=== PATIENT | male | born 1955 | race Two or more races ===

== ENCOUNTER 2017-06-12 01:46 | Observation (INO) | payer BC ==
[2017-06-12] VITALS (14 sets, daily range): BP systolic 99–128; BP diastolic 65–88
[~2017-06-12] VITALS: Ht 177.8 cm; Wt 127.0 kg
[~2017-06-12 01:46] MED LIST: AMOX-362 PO; LISI-355 PO; OXYC5TAB38 PO; TRAM-420 PO; VARD20TA31 PO
[2017-06-12 07:41] LABS: PLATELET COUNT, AUTOMATED 117 K/uL (150-450)
[2017-06-12] MEDS ORDERED: NORMOSOL R SOLN(*) 1000 ML BAG 1,000 ML IV PRN (07:55)
[2017-06-12] MEDS ORDERED: LIDOCAINE/SOD BICARB 8.4% SYR ID ONE (07:55)
[2017-06-12] MEDS ORDERED: FAMOTIDINE 20 MG TAB PO ONE (07:55)
[2017-06-12] MEDS ORDERED: ceFAZolin(*) 2GM/D5W 50ML 50 ML IVPB ONE (07:55)
[2017-06-12] MEDS ORDERED: MIDAZOLAM 2 MG/2 ML VIAL IVP PRN (07:55)
[2017-06-12 07:59] LABS: INR 1.2
--- NOTE | 2017-06-12 08:45 | EKG ---
FACILITY: [facility] PATIENT NAME: LEISA ROA : [id number] MR: [id number] V: [id number] EXAM DATE: ORDERING PHYSICIAN: MARIO GODWIN TECHNOLOGIST: Isra Yu Reason : PREOP Blood Pressure : / mmHG Vent. Rate : 068 BPM Atrial Rate : 068 BPM P-R Int : 178 ms QRS Dur : 098 ms QT Int : 444 ms P-R-T Axes : 004 -02 017 degrees QTc Int : 472 ms Normal sinus rhythm Low voltage QRS Cannot rule out Inferior infarct , age undetermined Abnormal ECG No previous ECGs available Confirmed by SOFIYA TIM ([id number]) on 06/12/2017 4:40:33 PM Referred By: Confirmed By:SOFIYA TIM
[2017-06-12] MEDS ORDERED: BACITRACIN OINT 15 GM TUBE TP ONE (08:54)
[2017-06-12] MEDS ORDERED: fentaNYL CITR 100 MCG/2 ML AMP ONE (11:03)
[2017-06-12] MEDS ORDERED: FAMO20TA28 PO (11:05)
[2017-06-12] MEDS ORDERED: CIPR-214 PO (11:05)
[2017-06-12] MEDS ORDERED: IBUP800T37 PO (11:06)
[2017-06-12] MEDS ORDERED: HYDR-385 PO (11:07)
[2017-06-12] MEDS ORDERED: GENTAMICIN(*) 80 MG/2 ML VIAL 160 MG in NS(*) 0.9% 100 ML BAG 100 ML IVPB ONE (11:20)
[2017-06-12] MEDS ORDERED: KETOROLAC 15 MG/ML VIAL ONE (12:00)
[2017-06-12] MEDS: APAP/HYDROCODONE 325/7.5 TAB PO PRN ×2 (12:42→17:54)
[2017-06-12] MEDS ORDERED: FLUSH 10 ML SYR IVP PRN (13:00)
[2017-06-12] MEDS ORDERED: ONDANSETRON 4 MG/2 ML VIAL IVP PRN (13:00)
[2017-06-12] MEDS ORDERED: ZOLPIDEM TARTRATE 5 MG TAB PO PRN (13:00)
[2017-06-12] MEDS ORDERED: LR(*) 1000 ML BAG 1,000 ML IV PRN (13:00)
[2017-06-12] MEDS ORDERED: NALOXONE HCL 0.4 MG/ML VIAL IVP PRN (13:05)
[2017-06-12] MEDS ORDERED: HYDROmorphone PCA 6 MG/30 ML IV PRN (13:05)
[2017-06-12] MEDS: CEPHALEXIN MONO 500 MG CAP PO SCH ×3 (14:17→21:40)
--- NOTE | 2017-06-12 16:51 | OPERATIVE REPORT 1 ---
EVENT DATE: June 12, 2017 SURGEON: Wilfredo Nina MD ANESTHESIOLOGIST: Wilfredo Elliott MD ANESTHESIA: General anesthetic. PREOPERATIVE DIAGNOSIS Symptomatic left spermatocele with associated enlargement and pain. POSTOPERATIVE DIAGNOSIS Symptomatic left spermatocele with associated enlargement and pain. PROCEDURES PERFORMED 1. Exploration of left testicular region. 2. Left spermatocelectomy. 3. Left epididymectomy. 4. Placement of left nehemiah-scrotal drain. DESCRIPTION OF PROCEDURE Under general anesthetic, the patient was prepped and draped in a supine position. The incision was made in the groin area above the left testicle. The testicle and lesion were delivered out of the operative site and isolated. The tunica vaginalis was opened. The large, multiloculated spermatocele was noted attached to the superior aspect and the lateral aspect of the testicle and the distal cord. The dissection was begun by isolating the vas deferens and dissecting the lesion off the at the inferior pole of the testicle. The convoluted portion of the epididymis and the body of the epididymis were dissected off of the testicle to the rete testis area. The lesion was removed at the rete testis area and removed intact. The blood supply to the testicle was isolated and preserved throughout the procedure. The testicle had normal color and bled easily after conclusion of the dissection. Bleeding was controlled with spot coagulation and ligatures. Estimated blood loss was a few milliliters. The rete testis area was incised, and it was oversewn with running 2-0 chromic catgut suture and then interrupted suture placed along the line of the incision for reinforcement purposes. The bleeding appeared to be satisfactorily controlled. The testicle was "orchiopexied' in the dependent position in the left hemiscrotum. A vacuum drain flat was placed in the left hemiscrotum up into the left groin area. It was secured with 2-0 chromic catgut suture. The wound was irrigated with double antibiotic solution several times throughout the procedure. The testicle was satisfactorily "orchiopexied" in the dependent portion of the left hemiscrotum with interrupted 3-0 catgut sutures times two. The subcutaneous tissue was closed with 3-0 plain catgut. The skin was closed with skin clips. The patient tolerated the procedure satisfactorily and returned to the recovery room in satisfactory condition. This is a 62-year-old [place] male complaining of a left spermatocele that had been progressively enlarging over the last year or two and has enlarged to the point where it started to be pinched and caused him pain and discomfort. Options were discussed with the patient. He was agreeable to further evaluation and therapy. See operative note for details of the exploration and the treatment. The patient will be ready for discharge home when alert and functional. He will force fluids, 2 L per day. Activities are restricted to careful ambulation. He is push down on his left testicle every day to ensure dependent positioning. He was instructed on routine wound care. He is to continue ice packs as needed. He is discharged home on Cipro, Pepcid, Motrin, and [place] therapy. [facility]
[2017-06-12] MEDS: FAMOTIDINE 20 MG TAB PO SCH (21:40)
[2017-06-12] MEDS: DOCUSATE SODIUM 100 MG CAP PO SCH (21:40)
[2017-06-13 00:28] VITALS: BP 110/72
[2017-06-13] MEDS: APAP/HYDROCODONE 325/7.5 TAB PO PRN ×3 (00:41→13:19)
[2017-06-13 03:54] VITALS: BP 112/73
[2017-06-13 07:56] VITALS: BP 121/75
[2017-06-13] MEDS: CEPHALEXIN MONO 500 MG CAP PO SCH ×2 (08:16→13:19)
[2017-06-13] MEDS: DOCUSATE SODIUM 100 MG CAP PO SCH (08:16)
[2017-06-13] MEDS: FAMOTIDINE 20 MG TAB PO SCH (08:16)
[2017-06-13 11:01] VITALS: BP 110/71
== END 2017-06-13 13:38 | disposition home or self-care (01) ==
LOC: OR 01:46 → MED 13:45
DX: N43.40 Spermatocele of epididymis, unspecified (principal); I10 Essential (primary) hypertension
CPT/HCPCS: 36415; 54840; 85025; 85610; 85730; 88304; 93005; G0378; J1580; J1885; J3010; J7050; 82040; 82247; 82310; 82374; 82435; 82565; 82947; 84075; 84132; 84155; 84295; 84450; 84460; 84520; J0690

== ENCOUNTER 2017-06-24 17:37 | Inpatient (IN) | payer BC ==
[~2017-06-24] VITALS: Ht 175.3 cm; Wt 124.7 kg
[2017-06-24] VITALS (8 sets, daily range): BP systolic 95–150; BP diastolic 57–91
[~2017-06-24 17:37] MED LIST changes: +CIPR-214 PO; +FAMO20TA28 PO; +HYDR-385 PO; +IBUP800T37 PO
[2017-06-24] MEDS ORDERED: ROPIVACAINE 0.2% 20 ML VIAL ONE (17:39)
[2017-06-24] MEDS ORDERED: LIDO/EPI 1% MDV 1:100,000 20ML INFIL ONE (17:39)
[2017-06-24] MEDS ORDERED: GENTAMICIN(*) 80 MG/2 ML VIAL 160 MG in NS(*) 0.9% 100 ML BAG 100 ML IVPB ONE (18:00)
[2017-06-24] MEDS ORDERED: LIDOCAINE/SOD BICARB 8.4% SYR SC ONE (18:00)
[2017-06-24] MEDS ORDERED: cefTRIAXone(*) 2 GM VIAL 2 GM in NS(*) 0.9% 100 ML ADDVANT BAG 100 ML IVPB ONE (18:10)
[2017-06-24] MEDS ORDERED: HYDR-4308 PO (18:13)
[2017-06-24] MEDS ORDERED: RANI-324 PO (18:13)
[2017-06-24] MEDS: NORMOSOL R SOLN(*) 1000 ML BAG 1,000 ML IV PRN (18:31)
[2017-06-24 18:34] LABS: PLATELET COUNT, AUTOMATED 119 K/uL (150-450)
[2017-06-24] MEDS ORDERED: PROPOFOL EMUL(*) 10MG/ML 20 ML 20 ML ONE (19:13)
[2017-06-24] MEDS ORDERED: DEXAMETHASONE SOD PHOS 10MG/ML ONE (19:13)
[2017-06-24] MEDS ORDERED: ONDANSETRON 4 MG/2 ML VIAL ONE (19:13)
[2017-06-24] MEDS ORDERED: ROCURONIUM BROM 10 MG/ML 10 ML ONE (19:13)
[2017-06-24] MEDS ORDERED: LIDOCAINE MPF 1% 5 ML VIAL ONE (19:13)
[2017-06-24] MEDS ORDERED: MIDAZOLAM 2 MG/2 ML VIAL ONE (19:14)
[2017-06-24] MEDS ORDERED: fentaNYL CITR 100 MCG/2 ML AMP ONE ×2 (19:14→21:38)
[2017-06-24] MEDS ORDERED: ACETAMINOPHEN(*)1000 MG/100 ML 100 ML IVPB ONE (19:15)
[2017-06-24] MEDS ORDERED: FAMOTIDINE(*) 20MG/50ML PREMIX 50 ML IVPB ONE (19:15)
[2017-06-24] MEDS ORDERED: BACITRACIN OINT 15 GM TUBE TP ONE (20:51)
[2017-06-24] MEDS ORDERED: KETOROLAC 30 MG/ML VIAL ONE (21:21)
[2017-06-24] MEDS ORDERED: KETOROLAC 30 MG/ML VIAL IVP ONE (21:24)
[2017-06-24] MEDS ORDERED: ZOLPIDEM TARTRATE 5 MG TAB PO PRN (22:39)
[2017-06-24] MEDS ORDERED: ACETAMIN/CODEINE #3 300-30 MG PO PRN (22:39)
[2017-06-24] MEDS ORDERED: ONDANSETRON 4 MG/2 ML VIAL IVP PRN (22:45)
[2017-06-24] MEDS ORDERED: NALOXONE HCL 0.4 MG/ML VIAL IVP PRN (22:50)
[2017-06-24] MEDS: HYDROmorphone PCA 6 MG/30 ML IV PRN (23:06)
[2017-06-24] MEDS: LR(*) 1000 ML BAG 1,000 ML IV SCH (23:07)
[2017-06-25] VITALS (11 sets, daily range): BP systolic 90–107; BP diastolic 49–71; Ht 175.3 cm; Wt 124.7 kg
[2017-06-25] MEDS ORDERED: GENTAMICIN(*) 80 MG/2 ML VIAL 80 MG in NS(*) 0.9% 100 ML BAG 100 ML IVPB SCH (04:00)
[2017-06-25] MEDS: LR(*) 1000 ML BAG 1,000 ML IV SCH ×3 (06:42→22:42)
[2017-06-25] MEDS: FAMOTIDINE 20 MG TAB PO SCH ×2 (08:30→20:41)
[2017-06-25] MEDS: DOCUSATE SODIUM 100 MG CAP PO SCH ×2 (08:30→20:41)
[2017-06-25] MEDS: GENTAMICIN/NS 80 MG/100 ML PB 100 ML IVPB SCH ×2 (12:32→20:02)
--- NOTE | 2017-06-25 14:10 | OPERATIVE REPORT 1 ---
EVENT DATE: June 24, 2017 SURGEON: Wilfredo Nina MD ANESTHESIOLOGIST: Janusz Martinez MD ANESTHESIA: General PREOPERATIVE DIAGNOSIS Cellulitis and/or abscess of the left groin and left scrotal area. POSTOPERATIVE DIAGNOSIS Cellulitis and/or abscess of the left groin and left scrotal area. PROCEDURE PERFORMED 1. Incision and drainage of collection of fluid and/or abscess of the left groin and left scrotal area. 2. Placement of J-VAC drain. 3. Barbotage of wound with double antibiotic and then Betadine solution. DESCRIPTION OF PROCEDURE Under general anesthetic, the patient was prepped and draped in the supine position. The wound was opened, and there was immediate drainage of watery, purulent-type material from the wound. Cultures were obtained for anaerobic and aerobic studies. Some fluid was sent in a syringe for gram stain. The wound was probed, and there was fluid and/or abscess drainage that extended from the groin area all the way down to the scrotum across and underneath the penis. The dependent portion of the scrotum was perforated, and the wound was irrigated and barbotaged with double antibiotic solution and Betadine solution and with double antibiotic solution. The J-VAC drain was placed into the left groin area and extended across the wound medially subcutaneously. The drain was secured with 2-0 silk ligatures x 2. The subcutaneous tissue was closed with interrupted 3-0 plain catgut suture. The skin was closed with skin clips. The patient tolerated the procedure satisfactorily and returned to the recovery room in satisfactory condition. INDICATION FOR PROCEDURE This is a 62-year-old male complaining of increased swelling and pain and chills and fever when seen today in the office and per phone call this afternoon following treatment for his left spermatocele approximately 10-11 days ago. Patient has done well. He initially had drains placed, and they were removed, and he was convalescing satisfactorily. However, the patient has noted increased swelling and pain in the left groin scrotal area, and on examination today that was indeed the case. The incision shows some cellulitis. He was informed. Patient stated he had no chills or fever at that time, and explained if he did, to notify us immediately for treatment. called this afternoon, and stated the patient had fever to 102.6 degrees and was having chills. Recommended return for further evaluation and therapy. That has been accomplished, see operative note for details. The patient has not been wearing his scrotal supporter for several days prior to the notice of increased swelling and inflammation. The also noticed drainage this afternoon from the old drain site. PLAN Patient has been started on double antibiotics, and cultures have been obtained. We will continue antibiotic therapy IV for probably one to two days, and then will follow up as an outpatient. RAQUEL
[2017-06-25] MEDS ORDERED: cefTRIAXone 2 GM VIAL IVP SCH (20:00)
[2017-06-25] MEDS: NORMOSOL R SOLN(*) 1000 ML BAG 1,000 ML IV PRN (20:02)
[2017-06-25] MEDS ORDERED: SUGAMMADEX SOD 500 MG/5 ML SDV ONE (21:00)
[2017-06-26 03:08] VITALS: BP 106/71
[2017-06-26] MEDS: GENTAMICIN/NS 80 MG/100 ML PB 100 ML IVPB SCH ×2 (03:33→12:01)
[2017-06-26] MEDS: HYDROmorphone PCA 6 MG/30 ML IV PRN (05:35)
[2017-06-26] MEDS: LR(*) 1000 ML BAG 1,000 ML IV SCH (05:57)
[2017-06-26 08:15] VITALS: BP 107/63
[2017-06-26] MEDS: FAMOTIDINE 20 MG TAB PO SCH (08:21)
[2017-06-26] MEDS: DOCUSATE SODIUM 100 MG CAP PO SCH (08:21)
[2017-06-26 11:23] VITALS: BP 110/72
[2017-06-26] MEDS ORDERED: CEPH500T7 PO (12:46)
[2017-06-26] MEDS ORDERED: IBUP800T37 PO (12:47)
== END 2017-06-26 13:50 | disposition home or self-care (01) | DRG 728 ==
LOC: INTOOBSV 17:37 → MED 17:37 → OBSVTOIN 17:37 → EDSTATUS 18:15
PROC: 0V9500Z Drainage of Scrotum with Drainage Device, Open Approach (ICD-10-PCS; principal; 2017-06-24 20:01)
DX: N49.2 Inflammatory disorders of scrotum (principal); T81.4XXA Infection following a procedure, initial encounter; L03.116 Cellulitis of left lower limb; B95.7 Other staphylococcus as the cause of diseases classified elsewhere; I10 Essential (primary) hypertension; B18.2 Chronic viral hepatitis C; M19.90 Unspecified osteoarthritis, unspecified site; K76.89 Other specified diseases of liver; Z96.653 Presence of artificial knee joint, bilateral; Z87.891 Personal history of nicotine dependence
CPT/HCPCS: 36415; 82310; 82374; 82435; 82565; 82947; 84132; 84295; 84520; 85025; 87040; 87071; 87073; 87077; 87186; 87205; J0131; J0696; J1100; J1170; J1580; J1885; J2001; J2250; J2405; J2704; J2795; J3010; J3490; J7050; J7120

== ENCOUNTER → 2018-06-16 | Outpatient (CLI) | payer MEDICARE ==
[2017-06-25 16:15] VITALS: BMI 40.6
[~2018-06-16] MED LIST changes: +CEPH500T7 PO; +HYDR-654 PO; +RANI-366 PO
--- NOTE | 2018-06-16 14:05 | RADIOLOGY IMAGING REPORT ---
[place] [facility] [place] NAME: Reji Burgos : 1955 MR: [id number] V: [id number] EXAM DATE: ORDERING PHYSICIAN: MARIO ROTHMAN TECHNOLOGIST: Location: [facility] [place] Patient: Reji Burgos : 1955 Visit/Account:[id number] Date of Sevice: 06/16/2018 TIBIA FIBULA RIGHT Given history: Fall. Right leg pain. COMPARISON STUDIES: NONE FINDINGS: Osseous structures: There is a very slight periosteal elevation seen at the medial distal tibial me taphysis. Osseous structures otherwise unremarkable. Joints: Remote right total knee arthroplasty. Tibiotalar joint unremarkable. Soft tissues: normal . IMPRESSION: Slight periosteal elevation distal medial tibial metaphysis which might represent a very subtle cor tical buckle fracture would correlate with point tenderness. Exam otherwise unremarkable. Report Dictated By: Anthony Card MD at 06/16/2018 1:58 PM Report E-Signed By: Anthony Card MD at 06/16/2018 2:01 PM WSN:[email or web address]
== END ==
LOC: RAD 11:21
DX: M79.661 Pain in right lower leg (principal)

== ENCOUNTER 2018-06-19 15:41 | Inpatient (IN) | payer MEDICARE ==
[~2018-06-19] VITALS: Ht 177.8 cm; Wt 132.0 kg
--- NOTE | 2018-06-19 15:52 | ER Report ---
History and Physical Time Seen By MD: 15:52 HPI/ROS CHIEF COMPLAINT: Leg infection HISTORY OF PRESENT ILLNESS: This is a 63-year-old male presents to the emergency department for possible leg infection. Patient states that about 2 weeks ago he tripped over a pallet, fell forward, had his overalls on however he did sustain an injury to the skin surrounding the proximal tibia. He has a previous right knee replacement, after about a week continue to have pain in the right knee in the proximal tibia, was seen by his orthopedic surgeon in [place] they did x-rays and patient states it was "normal", since then he's had increased swelling and erythema surrounding the wound on the anterior surface of his right lower extremity. Stopped in to see Dr. Nina, who placed him on Keflex, the wound has increased in size, now the entire right lower extremity on the anterior surfaces erythematous, cellulitic, hot to touch, very taut and starting to weep. Patient denies fevers or chills. No nausea or vomiting. He does however have pain to the right lower extremity. He also has mildly increased swelling of the left lower extremity however no discomfort. REVIEW OF SYSTEMS: Constitutional: No fever, no chills. Eyes: No discharge. ENT: No sore throat. Cardiovascular: No chest pain, no palpitations. Respiratory: No cough, no shortness of breath. Gastrointestinal: No abdominal pain, no vomiting. Genitourinary: No hematuria. Musculoskeletal: As above. Skin: As above. Neurological: No headache. Allergies: Coded Allergies: No Known Drug Allergies (Unverified , 06/10/17) Home Meds Active Scripts Lisinopril/Hydrochlorothiazide (LISINOPRIL-HCTZ 20-25 MG TAB) 1 Each Tablet, 1 TAB PO QDAY, #30 TAB 6 Refills Prov:SHANNA RAMESH MD 05/23/16 Vardenafil Hcl (LEVITRA) 20 Mg Tablet, 1 TAB PO QDAY PRN for Erectile Dysfunction, #10 TAB 5 Refills Prov:SHANNA RAMESH MD 11/10/15 Reported Medications Ibuprofen (IBUPROFEN) 800 Mg Tablet, 1 TAB PO TID PRN for PAIN, #50 TAB 06/26/17 Cephalexin 500 Mg Tab (KEFLEX 500 MG TAB) 500 Mg Tablet, 500 MG PO QID, #60 TAB 06/26/17 Hydrocodone Bit/Acetaminophen (NORCO 7.5-325 TABLET) 1 Each Tablet, 1 EACH PO Q4-6H PRN for PAIN 06/24/17 Ibuprofen (IBUPROFEN) 800 Mg Tablet, 1 TAB PO TID, #50 TAB 06/12/17 Discontinued Reported Medications Ciprofloxacin 500 Mg Tab (CIPROFLOXACIN 500 MG TAB) 500 Mg Tablet, 500 MG PO BID, #30 TAB 06/12/17 Past Medical/Surgical History The patient has a past medical and surgical history of hypertension, pancreatitis, gallstones, hardening of the liver, hepatitis C, 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 Reviewed Nurses Notes: Yes Hx Smoking: No (3PPD X 10 YRS- quit ) Smoking Status: Former Smoker Hx Alcohol Use: No (last drink a couple weeks ago) Constitutional Vital Sign - Last 24 Hours 06/19/18 06/19/18 06/19/18 06/19/18 15:48 15:49 15:56 16:00 Temp 98.2 Pulse 87 88 Resp 16 B/P (MAP) 143/77 143/77 (99) 131/83 (99) Pulse Ox 93 94 O2 Delivery Room Air 06/19/18 06/19/18 06/19/18 06/19/18 16:11 16:26 16:30 16:41 Pulse ??? 85 82 B/P (MAP) 121/71 (88) Pulse Ox 92 92 06/19/18 06/19/18 06/19/18 06/19/18 16:56 17:00 17:11 17:26 Pulse 78 85 82 B/P (MAP) 130/71 (90) Pulse Ox 93 93 93 06/19/18 06/19/18 06/19/18 06/19/18 17:30 17:35 17:50 18:00 Pulse 83 79 B/P (MAP) 135/81 (99) 140/80 (100) Pulse Ox 88 93 06/19/18 06/19/18 06/19/18 06/19/18 18:05 18:20 18:30 18:35 Pulse 76 81 87 B/P (MAP) 122/76 (91) Pulse Ox 93 91 93 06/19/18 06/19/18 06/19/18 06/19/18 18:50 19:00 19:05 19:20 Pulse 80 75 ??? B/P (MAP) 128/73 (91) Pulse Ox 94 91 06/19/18 06/19/18 06/19/18 06/19/18 19:25 19:30 19:37 19:40 Pulse ??? 80 B/P (MAP) ???/??? (1665) 132/74 (93) Pulse Ox 92 06/19/18 06/19/18 06/19/18 06/19/18 19:55 20:00 20:05 20:20 Pulse 79 93 83 B/P (MAP) 131/68 (89) Pulse Ox 93 93 90 06/19/18 06/19/18 06/19/18 06/19/18 20:30 20:35 20:50 21:00 Pulse 81 80 B/P (MAP) 129/74 (92) 126/69 (88) Pulse Ox 91 92 06/19/18 06/19/18 06/19/18 21:05 21:20 21:30 Pulse 90 88 B/P (MAP) 109/73 (85) Pulse Ox 91 92 Physical Exam General Appearance: The patient is alert, has no immediate need for airway protection and no signs of toxicity. Eyes: Pupils equal and round no pallor or injection. ENT, Mouth: Mucous membranes are moist. Respiratory: There are no retractions, lungs are clear to auscultation. Cardiovascular: Regular rate and rhythm. Gastrointestinal: Abdomen is soft and non tender, no masses, bowel sounds normal. Neurological: Alert and oriented 4. Moving all extremities. Following all commands. No focal neuro deficits. Skin/ Extremities: Hot, weeping, erythematous and cellulitic right lower extremity, very taut. There is also a dime-sized scabbed over wound to the proximal anterior surface of the right lower leg. 1+ pitting edema to the left lower extremity, no indication of infection to the left lower extremity. RLE 46cm, [id number]. Musculoskeletal: Neck is supple non tender. DIFFERENTIAL DIAGNOSIS: After history and physical exam differential diagnosis was considered for cellulitis, osteomyelitis, DVT. Medical Decision Making Data Points Result Diagram: 06/20/18 0539 06/20/18 0539 Laboratory Hematology Test 06/19/18 15:50 06/19/18 16:18 Urine Color Yellow Urine Clarity Clear Urine pH 6.0 pH (4.8-9.5) Urine Specific [place] 1.019 Urine Protein Negative mg/dL (NEGATIVE) Urine Glucose (UA) Negative mg/dL (NEGATIVE) Urine Ketones Negative mg/dL (NEGATIVE) Urine Blood Negative (NEGATIVE) Urine Nitrite Negative (NEGATIVE) Urine Bilirubin Negative (NEGATIVE) Urine Urobilinogen 4.0 mg/dL (0.2-1.9) Urine Leukocyte Esterase Negative (NEGATIVE) Urine RBC 1 /HPF (0-2/HPF) Urine WBC <1 /HPF (0-5/HPF) Urine Squamous Epithelial Cells None /LPF (</=FEW) Urine Bacteria Negative /HPF (NONE-FEW) Urine Mucus None /HPF (NONE-FEW) Lactate 1.4 mmol/L (0.7-2.1) Total Bilirubin 1.5 mg/dl (0.2-1.3) Aspartate Amino Transf (AST/SGOT) 35 U/L (0-35) Alanine Aminotransferase (ALT/SGPT) 27 U/L (0-56) Alkaline Phosphatase 139 U/L (0-126) Total Protein 6.0 g/dl (6.3-8.2) Albumin 2.8 g/dl (3.5-5.0) Chemistry Test 06/19/18 15:50 06/19/18 16:18 Urine Color Yellow Urine Clarity Clear Urine pH 6.0 pH (4.8-9.5) Urine Specific [place] 1.019 Urine Protein Negative mg/dL (NEGATIVE) Urine Glucose (UA) Negative mg/dL (NEGATIVE) Urine Ketones Negative mg/dL (NEGATIVE) Urine Blood Negative (NEGATIVE) Urine Nitrite Negative (NEGATIVE) Urine Bilirubin Negative (NEGATIVE) Urine Urobilinogen 4.0 mg/dL (0.2-1.9) Urine Leukocyte Esterase Negative (NEGATIVE) Urine RBC 1 /HPF (0-2/HPF) Urine WBC <1 /HPF (0-5/HPF) Urine Squamous Epithelial Cells None /LPF (</=FEW) Urine Bacteria Negative /HPF (NONE-FEW) Urine Mucus None /HPF (NONE-FEW) Lactate 1.4 mmol/L (0.7-2.1) Total Bilirubin 1.5 mg/dl (0.2-1.3) Aspartate Amino Transf (AST/SGOT) 35 U/L (0-35) Alanine Aminotransferase (ALT/SGPT) 27 U/L (0-56) Alkaline Phosphatase 139 U/L (0-126) Total Protein 6.0 g/dl (6.3-8.2) Albumin 2.8 g/dl (3.5-5.0) Urinalysis Test 06/19/18 15:50 Urine Color Yellow Urine Clarity Clear Urine pH 6.0 pH (4.8-9.5) Urine Specific [place] 1.019 Urine Protein Negative mg/dL (NEGATIVE) Urine Glucose (UA) Negative mg/dL (NEGATIVE) Urine Ketones Negative mg/dL (NEGATIVE) Urine Blood Negative (NEGATIVE) Urine Nitrite Negative (NEGATIVE) Urine Bilirubin Negative (NEGATIVE) Urine Urobilinogen 4.0 mg/dL (0.2-1.9) Urine Leukocyte Esterase Negative (NEGATIVE) Urine RBC 1 /HPF (0-2/HPF) Urine WBC <1 /HPF (0-5/HPF) Urine Squamous Epithelial Cells None /LPF (</=FEW) Urine Bacteria Negative /HPF (NONE-FEW) Urine Mucus None /HPF (NONE-FEW) Microbiology Microbiology Date/Time Source Procedure Growth Status 06/19/18 17:38 Blood Peripheral Draw Blood Culture - Preliminary NO GROWTH AFTER 1 DAY, REINCUBATED Resulted 06/19/18 16:43 Blood Peripheral Draw Blood Culture - Preliminary NO GROWTH AFTER 1 DAY, REINCUBATED Resulted EKG/Imaging Imaging INDICATION: eval for osteo. No other history provided. DATE: 06/19/2018 9:06 PM. TECHNIQUE: CT KNEE W/O RT, TIBIA RIGHT W/O CONTRAST. Noncontrast axial CT imaging was performed of the right tibia and fibula and right knee. One of the following dose optimization techniques was utilized in the performance of this exam: Automated exposure control; adjustment of the mA and/or kV according to the patient's size; or use of an iterative reconstruction technique. Specific details can be referenced in the facility's radiology CT exam operational policy. COMPARISON: Radiographs of the same day. FINDINGS: Knee: Streak artifact from the total knee prosthesis obscures much of the knee. No evidence of periprosthetic fracture. There is a trace effusion. There is no tibial or fibular fracture. No periosteal erosion or reaction. Focal subcutaneous edema is most notable anteriorly adjacent to the proximal tibial shaft. There is no discrete fluid collection or abscess. Mild skin thickening. There is moderate circumferential edema at the ankle. IMPRESSION: 1. No acute osseous adenopathy. 2. Limited evaluation of the knee given hardware artifact. Trace effusion. 3. Focal edema anterior to the proximal tibial shaft but no discrete fluid collection or abscess. No underlying periosteal reaction or erosion. 4. At least moderate circumferential edema at the ankle. Report Dictated By: Sherice Shepard MD at 06/19/2018 9:06 PM Report E-Signed By: Sherice Shepard MD at 06/19/2018 9:14 PM WSN:[id number] Right lower extremity: Common femoral vein: Negative. Femoral vein: Negative. Deep femoral vein: Negative. Popliteal vein: Negative. Visualized deep calf veins: Negative. Greater saphenous vein in the proximal thigh: Negative. Popliteal fossa: Negative. Waveforms: Normal respiratory phasicity. Other findings: Prominent right inguinal lymph node with fatty hilum measuring 1.3 cm in short axis. Edema in the subcutaneous soft tissues in the right lower leg. IMPRESSION: No evidence of deep vein thrombosis of the right lower extremity. Edema in the subcutaneous soft tissues in the right lower leg. Mildly prominent right inguinal lymph node measuring 1.3 cm in short axis. This may be reactive. Report Dictated By: Giuseppe Botello MD at 06/19/2018 5:36 PM Report E-Signed By: Giuseppe Botello MD at 06/19/2018 5:39 PM WSN:[id number] Bones: Unchanged small focus of slight periosteal elevation at the distal medial tibial metaphysis. Small plantar calcaneal enthesophytes. Joint spaces: Right knee arthroplasty. Hardware: Right knee arthroplasty hardware appears intact. Alignment: Normal. Soft tissues: Circumferential soft tissue swelling in the lower leg and ankle. There is also soft tissue swelling along the dorsal foot. IMPRESSION: Diffuse soft tissue swelling in the right lower leg and along the dorsum of the right foot. Unchanged small focus of slight periosteal elevation along the medial distal tibial metaphysis. This could be posttraumatic, however, early changes of osteomyelitis are not excluded. Report Dictated By: Giuseppe Botello MD at 06/19/2018 5:39 PM Report E-Signed By: Giuseppe Botello MD at 06/19/2018 5:49 PM WSN:[id number] ED Course/Re-evaluation Clinical Indication for ER IV: Hydration, IV Access ED Course The patient was admitted to room. A history and physical were obtained. Differential diagnoses were considered. An IV was started. A CBC, CMP, lactate and blood cultures were obtained. A 1 L normal saline bolus was given. CBC showing white count of 3.4, MCV 99.7, monocytes 19.5, alk phosphatase 139, normal lactate. Patient was given 2.5 g loading dose of vancomycin. Patient was also given Zosyn while in the ER. An ultrasound of the right lower extremity was negative for DVT, showing reactive lymph node, x-ray of the right lower extremity Diffuse soft tissue swelling in the right lower leg and along the dorsum of the right foot. Unchanged small focus of slight periosteal elevation along the medial distal tibial metaphysis. This could be posttraumatic, however, early changes of osteomyelitis are not excluded. I reviewed the results with the patient, as there was a question of osteomyelitis I did recommend a CT, they were agreeable he CT of the knee and right lower extremity were obtained. Negative right lower extremity and a CT, no indication of osteomyelitis. I didn't review the results with the patient, I also spoke with Dr. Ramos as noted below, the patient will be admitted to the medical floor. 06/19/2018 9:28:01 pm I did speak with Dr. Ramos, the hospitalist on-call, he's except the patient and the hospitalist services for cellulitis of the right lower extremity. Patient is agreeable with the admission. Decision to Disposition Date: Jun 19, 2018 Decision to Disposition Time: 21:27 Depart Departure Latest Vital Signs Vital Signs Date Time Temp Pulse Resp B/P (MAP) Pulse Ox O2 Delivery O2 Flow Rate FiO2 06/19/18 21:30 109/73 (85) 06/19/18 21:20 88 92 06/19/18 15:48 98.2 16 Room Air Impression: Primary Impression: Cellulitis of right lower extremity Condition: Improved Disposition: Admitted from ER Referrals: SHANNA RAMESH MD (PCP) BLANCA VARELA RECEIVING BARN CUSTODIAN- Jun 19, 2018 15:52
[2018-06-19] MEDS ORDERED: NS(*) 0.9% 1000 ML BAG 1,000 ML IV ONE (16:05)
[2018-06-19 16:32] LABS: PLATELET COUNT, AUTOMATED 163 K/uL (150-450)
[2018-06-19] MEDS ORDERED: VANCOMYCIN(*) 1 GM VIAL 2.5 GM in NS(*) 0.9% 250 ML BAG 250 ML IVPB ONE (16:55)
[2018-06-19] MEDS ORDERED: VANCOMYCIN(*) 1 GM VIAL 2.5 GM in NS(*) 0.9% 500 ML BAG 500 ML IVPB ONE ×2 (17:00→17:05)
--- NOTE | 2018-06-19 17:43 | RADIOLOGY IMAGING REPORT ---
FACILITY: [facility] PATIENT NAME: Reji Burgos : 1955 MR: [id number] V: [id number] EXAM DATE: ORDERING PHYSICIAN: BLANCA VARELA TECHNOLOGIST: Location: [facility] [place] Patient: Reji Burgos : 1955 Visit/Account:[id number] Date of Sevice: 06/19/2018 EXAMINATION: Unilateral lower extremity deep vein duplex Doppler ultrasound HISTORY: Redness and swelling post fall. COMPARISON: None. FINDINGS: Grayscale compression, duplex and color Doppler interrogation of the right lower extremity deep veins from common femoral vein to proximal calf was performed. The greater saphenous vein in the ipsilater al proximal thigh was evaluated using similar technique. Right lower extremity: Common femoral vein: Negative. Femoral vein: Negative. Deep femoral vein: Negative. Popliteal vein: Negative. Visualized deep calf veins: Negative. Greater saphenous vein in the proximal thigh: Negative. Popliteal fossa: Negative. Waveforms: Normal respiratory phasicity. Other findings: Prominent right inguinal lymph node with fatty hilum measuring 1.3 cm in short axis. Edema in the subcutaneous soft tissues in the right lower leg. IMPRESSION: No evidence of deep vein thrombosis of the right lower extremity. Edema in the subcutaneous soft tissues in the right lower leg. Mildly prominent right inguinal lymph node measuring 1.3 cm in short axis. This may be reactive. Report Dictated By: Giuseppe Botello MD at 06/19/2018 5:36 PM Report E-Signed By: Giuseppe Botello MD at 06/19/2018 5:39 PM WSN:[id number]
--- NOTE | 2018-06-19 17:54 | RADIOLOGY IMAGING REPORT ---
FACILITY: PATIENT NAME: Reji Burgos : 1955 MR: [id number] V: [id number] EXAM DATE: ORDERING PHYSICIAN: BLANCA VARELA TECHNOLOGIST: Location: [facility] Patient: Reji Burgos : 1955 Visit/Account:[id number] Date of Sevice: 06/19/2018 EXAMINATION: Right tibia and fibula radiographs 2 views HISTORY: Redness and swelling of right lower leg. COMPARISON: 06/16/2018. FINDINGS: AP and lateral views of the right tibia and fibula are obtained. Bones: Unchanged small focus of slight periosteal elevation at the distal medial tibial metaphysis. Small plantar calcaneal enthesophytes. Joint spaces: Right knee arthroplasty. Hardware: Right knee arthroplasty hardware appears intact. Alignment: Normal. Soft tissues: Circumferential soft tissue swelling in the lower leg and ankle. There is also soft ti ssue swelling along the dorsal foot. IMPRESSION: Diffuse soft tissue swelling in the right lower leg and along the dorsum of the right foot. Unchanged small focus of slight periosteal elevation along the medial distal tibial metaphysis. This could be posttraumatic, however, early changes of osteomyelitis are not excluded. Report Dictated By: Giuseppe Botello MD at 06/19/2018 5:39 PM Report E-Signed By: Giuseppe Botello MD at 06/19/2018 5:49 PM WSN:[id number]
[2018-06-19] MEDS: PIPERACILLIN/TAZO*3.375GM VIAL 3.375 GM in NS(*) 0.9% 100 ML MINI-BAG 100 ML IVPB ONE ×2 (18:55→22:00)
--- NOTE | 2018-06-19 21:17 | RADIOLOGY IMAGING REPORT ---
FACILITY: [facility] - [place] PATIENT NAME: Reji Burgos : 1955 MR: [id number] V: [id number] EXAM DATE: ORDERING PHYSICIAN: BLANCA VARELA TECHNOLOGIST: [place] [facility] [place] Patient: Reji Burgos : 1955 Visit/Account:[id number] Date of Sevice: 06/19/2018 INDICATION: eval for osteo. No other history provided. DATE: 06/19/2018 9:06 PM. TECHNIQUE: CT KNEE W/O RT, TIBIA RIGHT W/O CONTRAST. Noncontrast axial CT imaging was performed of t he right tibia and fibula and right knee. One of the following dose optimization techniques was util ized in the performance of this exam: Automated exposure control; adjustment of the mA and/or kV acco rding to the patient's size; or use of an iterative reconstruction technique. Specific details can be referenced in the facility's radiology CT exam operational policy. COMPARISON: Radiographs of the same day. FINDINGS: Knee: Streak artifact from the total knee prosthesis obscures much of the knee. No evidence of perip rosthetic fracture. There is a trace effusion. There is no tibial or fibular fracture. No periosteal erosion or reaction. Focal subcutaneous edema is most notable anteriorly adjacent to the proximal tibial shaft. There is no discrete fluid collec tion or abscess. Mild skin thickening. There is moderate circumferential edema at the ankle. IMPRESSION: 1. No acute osseous adenopathy. 2. Limited evaluation of the knee given hardware artifact. Trace effusion. 3. Focal edema anterior to the proximal tibial shaft but no discrete fluid collection or abscess. N o underlying periosteal reaction or erosion. 4. At least moderate circumferential edema at the ankle. Report Dictated By: Sherice Shepard MD at 06/19/2018 9:06 PM Report E-Signed By: Sherice Shepard MD at 06/19/2018 9:14 PM WSN:[email or web address]
--- NOTE | 2018-06-19 21:18 | RADIOLOGY IMAGING REPORT ---
FACILITY: [facility] PATIENT NAME: Reji Burgos : 1955 MR: [id number] V: [id number] EXAM DATE: ORDERING PHYSICIAN: BLANCA VARELA TECHNOLOGIST: Location: [facility] - [place] Patient: Reji Burgos : 1955 Visit/Account:[id number] Date of Sevice: 06/19/2018 INDICATION: eval for osteo. No other history provided. DATE: 06/19/2018 9:06 PM. TECHNIQUE: CT KNEE W/O RT, TIBIA RIGHT W/O CONTRAST. Noncontrast axial CT imaging was performed of t he right tibia and fibula and right knee. One of the following dose optimization techniques was util ized in the performance of this exam: Automated exposure control; adjustment of the mA and/or kV acco rding to the patient's size; or use of an iterative reconstruction technique. Specific details can be referenced in the facility's radiology CT exam operational policy. COMPARISON: Radiographs of the same day. FINDINGS: Knee: Streak artifact from the total knee prosthesis obscures much of the knee. No evidence of perip rosthetic fracture. There is a trace effusion. There is no tibial or fibular fracture. No periosteal erosion or reaction. Focal subcutaneous edema is most notable anteriorly adjacent to the proximal tibial shaft. There is no discrete fluid collec tion or abscess. Mild skin thickening. There is moderate circumferential edema at the ankle. IMPRESSION: 1. No acute osseous adenopathy. 2. Limited evaluation of the knee given hardware artifact. Trace effusion. 3. Focal edema anterior to the proximal tibial shaft but no discrete fluid collection or abscess. N o underlying periosteal reaction or erosion. 4. At least moderate circumferential edema at the ankle. Report Dictated By: Sherice Shepard MD at 06/19/2018 9:06 PM Report E-Signed By: Sherice Shepard MD at 06/19/2018 9:14 PM WSN:[email or web address]
[2018-06-19] MEDS ORDERED: PIPERACILLIN/TAZO*3.375GM VIAL 3.375 GM ONE (21:41)
[2018-06-19] MEDS ORDERED: NS(*) 0.9% 100 ML BAG 100 ML ONE (21:42)
[2018-06-19] MEDS ORDERED: NS(*) 0.9% 500 ML BAG 500 ML IV ONE (22:00)
[2018-06-19] MEDS ORDERED: INFLUENZA VIRUS VAC 0.5ML SYR IM ONLY ONE (22:50)
[2018-06-19] MEDS ORDERED: ACETAMINOPHEN 500 MG TAB PO PRN (22:50)
[2018-06-19 23:01] VITALS: BP 138/75
--- NOTE | 2018-06-19 23:15 | History & Physical ---
History of Present Illness Chief Complaint Swelling and redness right leg. History of Present Illness This patient presented to the emergency room complaining of redness and swelling in the right leg. It started 2 weeks ago after suffering a fall and obtaining an abrasion on the leg. It turned red and swollen. He was seen by his orthopedic surgeon since he does have a knee replacement. He was cleared by orthopedics and placed on Keflex. The redness has advanced despite antibiotics. History Problems: (1) Benign hypertension Status: Chronic (2) Hepatitis C Status: Chronic Home Meds Active Scripts Lisinopril/Hydrochlorothiazide (LISINOPRIL-HCTZ 20-25 MG TAB) 1 Each Tablet, 1 TAB PO QDAY, #30 TAB 6 Refills Prov:SHANNA RAMESH MD 05/23/16 Vardenafil Hcl (LEVITRA) 20 Mg Tablet, 1 TAB PO QDAY PRN for Erectile Dysfunction, #10 TAB 5 Refills Prov:SHANNA RAMESH MD 11/10/15 Reported Medications Ibuprofen (IBUPROFEN) 800 Mg Tablet, 1 TAB PO TID PRN for PAIN, #50 TAB 06/26/17 Cephalexin 500 Mg Tab (KEFLEX 500 MG TAB) 500 Mg Tablet, 500 MG PO QID, #60 TAB 06/26/17 Hydrocodone Bit/Acetaminophen (NORCO 7.5-325 TABLET) 1 Each Tablet, 1 EACH PO Q4-6H PRN for PAIN 06/24/17 Ibuprofen (IBUPROFEN) 800 Mg Tablet, 1 TAB PO TID, #50 TAB 06/12/17 Discontinued Reported Medications Ciprofloxacin 500 Mg Tab (CIPROFLOXACIN 500 MG TAB) 500 Mg Tablet, 500 MG PO BID, #30 TAB 06/12/17 Allergies: Coded Allergies: No Known Drug Allergies (Unverified , 06/10/17) Patient History: FH: chronic renal failure BROTHER OR SISTER, FH: congestive heart failure MOTHER, , Age:74 FH: hypertension FATHER, , Age:56 FH: stroke FATHER, , Age:56 FHx: heart failure BROTHER OR SISTER, Hx Smoking: No (3PPD X 10 YRS- quit ) Smoking Status: Former Smoker Caffeine Intake: Soda Caffeine/Cups Per Day: OCCASSIONAL Hx Alcohol Use: No (last drink a couple weeks ago) Hx Substance Use Disorder: No Social Drug Use: Never Review of Systems All Systems Reviewed/Normal: Yes Exam Vital Signs Vital Signs Date Time Temp Pulse Resp B/P (MAP) Pulse Ox O2 Delivery O2 Flow Rate FiO2 06/19/18 23:01 98.0 76 16 138/75 (96) 96 Room Air Neuro: No Gross deficits Eyes: PERRLA Cardiovascular: Regular Rate and Rhythm Respiratory: Clear to Auscultation GI: Abd Soft and Non-Tender Extremities: Other (Right leg is red and edematous. An inkline was placed at the borders.) Medical Decision Making Data Points Result Diagram: 06/19/18 1618 06/19/18 1618 Assessment and Plan Problems: (1) Cellulitis of right lower extremity Status: Acute Assessment & Plan: He did have a worsening cellulitis despite outpatient treatment with Keflex. Plain films and CT scan were negative for osseous or joint involvement. He has been placed on Zosyn and vancomycin. (2) Benign hypertension Status: Chronic Assessment & Plan: He is on chronic treatment with lisinopril and hydrochlorothiazide. (3) Hepatitis C Status: Chronic Venous Thromboembolism Antithrombotics Is Pt On Any Antithrombotics?: No Exam Sepsis Risk: No Definite Risk SOFIYA TIM DO Jun 19, 2018 23:15
[2018-06-19] MEDS ORDERED: FLUSH 10 ML SYR IVP PRN (23:35)
[2018-06-20] MEDS ORDERED: PIPERACILLIN/TAZO*3.375GM VIAL 3.375 GM ONE (03:59)
[2018-06-20] MEDS ORDERED: NS(*) 0.9% 100 ML BAG 100 ML ONE (03:59)
[2018-06-20] MEDS: PIPERACILLIN/TAZO*3.375GM VIAL 3.375 GM in NS(*) 0.9% 100 ML MINI-BAG 100 ML IVPB SCH ×4 (04:00→21:29)
[2018-06-20] MEDS ORDERED: VANCOMYCIN 1 GM VIAL ONE (04:01)
[2018-06-20] MEDS ORDERED: VANCOMYCIN 0.5 GM VIAL ONE ×2 (04:01→04:20)
[2018-06-20] MEDS ORDERED: NS(*) 0.9% 1000 ML BAG 1,000 ML ONE (04:12)
[2018-06-20] MEDS ORDERED: VANCOMYCIN(*) 1 GM VIAL 1 GM, VANCOMYCIN HCL 0.750 GM VIAL 0.75 GM in NS(*) 0.9% 500 ML... IVPB SCH (05:00)
[2018-06-20 06:24] LABS: PLATELET COUNT, AUTOMATED 143 K/uL (150-450)
[2018-06-20 07:31] VITALS: BP 127/89
[2018-06-20 10:25] VITALS: Ht 177.8 cm; Wt 132.0 kg
[2018-06-20] MEDS: LISINOPRIL 20 MG TAB PO SCH (10:55)
[2018-06-20] MEDS: RANITIDINE HCL 150 MG TAB PO SCH ×2 (10:55→20:21)
[2018-06-20] MEDS: ENOXAPARIN 40 MG/0.4ML SYR SC SCH (10:56)
[2018-06-20] MEDS: HYDROCHLOROTHIAZIDE 25 MG TAB PO SCH (10:56)
--- NOTE | 2018-06-20 13:00 | NUR ---
Lab report printed for Dr. Nina at his request.
--- NOTE | 2018-06-20 13:05 | Hospitalist Progress Note ---
Subjective Progress Notes Subjective 63M M admitted for cellulitis. ANGELO overnight, redness receding. Patient Complains of: Gastrointestinal: No Nausea, No Vomiting Physical Exam Vital Signs Date Time Temp Pulse Resp B/P (MAP) Pulse Ox O2 Delivery O2 Flow Rate FiO2 06/20/18 07:31 98.8 68 16 127/89 (102) 91 Room Air Intake and Output 06/20/18 06:59 Intake Total 1650 ml Output Total 350 ml Balance 1300 ml IV Total 1650 ml Output Urine Total 350 ml General Appearance: Alert, Awake, No Acute Distress, Afebrile Neuro: No Gross deficits ENT: Normal Cardiovascular: Normal Rhythm & Peripheral Pulses Respiratory: No Respiratory Distress Integumentary: Other (R leg erythema) Result Diagram: 06/20/1853806/20/18538 Assessment and Plan Problems: (1) Cellulitis of right lower extremity Status: Acute Assessment & Plan: He did have a worsening cellulitis despite outpatient treatment with Keflex. Plain films and CT scan were negative for osseous or joint involvement. He has been placed on Zosyn and vancomycin. If clinically improved will attempt to narrow antibiotic coverage. (2) Benign hypertension Status: Chronic Assessment & Plan: He is on chronic treatment with lisinopril and hydrochlorothiazide. (3) Hepatitis C Status: Chronic Exam Sepsis Risk: No Definite Risk RAMY ELLISON DO Jun 20, 2018 13:05
[2018-06-20 15:22] VITALS: BP 124/87
--- NOTE | 2018-06-20 17:11 | Pharmacy Note ---
Vancomycin Management Note Vanco Dosing Note Pharmacy Services Pharmacokinetic Dosing Consult, Vancomycin Pharmacy has been consulted for dosing and monitoring of vancomycin for cellulitis of RLE in a 63 yo male. Pertinent Past Medical History: bilateral TKAs, spermatocele surgery w/resulting MRSA infection, Hep C Antibiotics prior to admission; Keflex Additional Antimicrobials: Zosyn 3.375 gm IV q6h Patient Information: Height (cm): 177.8 Actual Body Weight (ABW): 132 kg (99.6 AdjBW) Pertinent Lab Tests WHITE BLOOD COUNT 3.1 NEUTROPHILS 46.3 SCR 0.9 VANCOMYCIN RANDOM 15.90 Culture Results: BLOOD NGTD Assessment: CrCl 84.5 ml/min IBW, 115 ml/min adjBW Renal function is stable Vancomycin Monitoring Assessment Goal Vancomycin Trough Level: 15-20 Plan: 1) Vancomycin 25 mg/kg loading dose (based on ABW): 2500 mg IV x 1 was given in ED 06/19/18 2) Vancomycin maintenance dose (based on ABW): 1750 mg IV q12h 3) Vancomycin monitoring: Tr today was 15.90 after 2 doses so will keep the same and do another Tr 1 hr before next dose at 06/21/18 0500. Pharmacy will continue to monitor daily and adjust regimen as appropriate. Thank you for the consult. NEMO OCASIO Jun 20, 2018 17:11
[2018-06-20] MEDS: VANCOMYCIN(*) 1 GM VIAL 1 GM, VANCOMYCIN HCL 0.750 GM VIAL 0.75 GM in NS(*) 0.9% 250 ML... IVPB SCH (17:49)
[2018-06-20] MEDS ORDERED: HYDR-627 PO (17:59)
[2018-06-20 19:26] VITALS: BP 109/57
[2018-06-21 04:06] VITALS: BP 114/79
[2018-06-21] MEDS: PIPERACILLIN/TAZO*3.375GM VIAL 3.375 GM in NS(*) 0.9% 100 ML MINI-BAG 100 ML IVPB SCH (04:07)
[2018-06-21] MEDS: VANCOMYCIN(*) 1 GM VIAL 1 GM, VANCOMYCIN HCL 0.750 GM VIAL 0.75 GM in NS(*) 0.9% 250 ML... IVPB SCH (04:51)
[2018-06-21 06:54] VITALS: BP 117/71
[2018-06-21] MEDS: HYDROCHLOROTHIAZIDE 25 MG TAB PO SCH (09:05)
[2018-06-21] MEDS: RANITIDINE HCL 150 MG TAB PO SCH ×2 (09:05→21:09)
[2018-06-21] MEDS: LISINOPRIL 20 MG TAB PO SCH (09:05)
[2018-06-21] MEDS: ENOXAPARIN 40 MG/0.4ML SYR SC SCH (09:06)
--- NOTE | 2018-06-21 11:23 | Hospitalist Progress Note ---
Subjective Progress Notes Subjective Overall, feeling much better. He reports that the erythema is improving. Physical Exam Vital Signs Date Time Temp Pulse Resp B/P (MAP) Pulse Ox O2 Delivery O2 Flow Rate FiO2 06/21/18 07:23 Room Air 06/21/18 06:54 98.6 80 14 117/71 (86) 96 Intake and Output 06/21/18 07:00 Intake Total 2478 ml Output Total 1540 ml Balance 938 ml Intake Oral 1660 ml IV Total 818 ml Output Urine Total 1540 ml # Voids 1 # Bowel Movements 1 General Appearance: Alert, Awake, No Acute Distress Integumentary: Other (Mild erythema in right leg but no longer to the edges of the drawn in margins. Swelling/scab over the tibial plateau. Cannot express discharge) Result Diagram: 06/20/1853806/20/18538 Assessment and Plan Problems: (1) Cellulitis of right lower extremity Status: Acute Assessment & Plan: He did have a worsening cellulitis despite outpatient treatment with Keflex. Plain films and CT scan were negative for osseous, joint involvement, or abscess. He was placed on Zosyn and vancomycin. Afebrile. Cellulitis improving. Will switch to IV Clindamycin because he had a MRSA infection of the groin/scrotal area after a spermatocelectomy/epididymectomy a year ago (sensitive to Clindamycin). (2) Benign hypertension Status: Chronic Assessment & Plan: He is on chronic treatment with lisinopril and hydrochloro thiazide. (3) Hepatitis C Status: Chronic Exam Sepsis Risk: No Definite Risk MARY AREVALO MD Jun 21, 2018 11:23
[2018-06-21 15:31] VITALS: BP 123/78
[2018-06-21] MEDS: CLINDAMYCIN(*) 900 MG/NS 50 ML 50 ML IVPB SCH (17:23)
--- NOTE | 2018-06-21 19:26 | Antimicrobial Stewardship ---
Antimicrobial Stewardship Empiricly appropriate: Yes Comment Was empirically started on Vancomycin and Zosyn for MRSA infection. Approriate Cultures done: Yes (Blood culture-NGTD) Review the antibiotic sensitiv: Yes (Per Dr. Isak Fernandez the patient has MRSA infection sensitive to Clindamycin so antibiotics were switched to Clindamycin 900 mg Iv q8h on 06/21/18.) Serum concentration checked: Yes Comment Vancomycin Troughs were done on 06/20/18 and 06/21/18 and were 15.9 and 17.98 respectively. Reviewed for Drug Interaction: Yes Monitored for Toxicities: Yes Determine standard duration: 8 weeks NEMO OCASIO Jun 21, 2018 19:26
[2018-06-22] MEDS: CLINDAMYCIN(*) 900 MG/NS 50 ML 50 ML IVPB SCH (00:45)
[2018-06-22 00:46] VITALS: BP 113/70
[2018-06-22] MEDS ORDERED: ACETAMINOPHEN 500 MG TAB PO PRN (01:10)
[2018-06-22 06:17] LABS: PLATELET COUNT, AUTOMATED 138 K/uL (150-450)
[2018-06-22 07:22] VITALS: BP 114/73
[2018-06-22] MEDS: RANITIDINE HCL 150 MG TAB PO SCH (09:48)
[2018-06-22] MEDS: ENOXAPARIN 40 MG/0.4ML SYR SC SCH (09:49)
[2018-06-22] MEDS ORDERED: CLINDAMYCIN 150 MG CAP PO SCH (09:50)
[2018-06-22] MEDS: HYDROCHLOROTHIAZIDE 25 MG TAB PO SCH (09:52)
[2018-06-22] MEDS: LISINOPRIL 20 MG TAB PO SCH (09:52)
[2018-06-22] MEDS ORDERED: CLIN-60 PO (09:55)
--- NOTE | 2018-06-22 10:00 | Hospitalist Depart ---
Discharge Summary Reason for Hosp/Final Diag: (1) Cellulitis of right lower extremity Status: Acute Hospital Course & Plan: He did have a worsening cellulitis despite outpatient treatment with Keflex. Plain films and CT scan were negative for osseous, joint involvement, or abscess. He was placed on Zosyn and vancomycin. Afebrile. Cellulitis improving. He was switched to IV Clindamycin because he had a MRSA infection of the groin/scrotal area after a spermatocelectomy/epididymectomy a year ago (sensitive to Clindamycin). He will be transitioned to oral clindamycin today. He will follow up with PCP in one week. (2) Benign hypertension Status: Chronic Hospital Course & Plan: He is on chronic treatment with lisinopril and hydrochlorothiazide. (3) Hepatitis C Status: Chronic Departure Latest Vital Signs Vital Signs 06/22/18 07:22 Temp 98.6 Pulse 66 Resp 18 B/P (MAP) 114/73 (87) Pulse Ox 92 O2 Delivery Room Air Weight (Pounds): 291 Result Diagram: 06/22/1851706/22/18517 Condition: Improved Discharge: Home, Self Care Discharge Instructions Home Meds Active Scripts Clindamycin Hcl (CLEOCIN HCL) 150 Mg Capsule, 450 MG PO QID for 7 Days, #28 CAPSULE Prov:LAKESHIA ARREOLA FLAT LOCK MACHINE OPERATOR 06/22/18 Lisinopril/Hydrochlorothiazide (LISINOPRIL-HCTZ 20-25 MG TAB) 1 Each Tablet, 1 TAB PO QDAY, #30 TAB 6 Refills Prov:SHANNA RAMESH MD 05/23/16 Vardenafil Hcl (LEVITRA) 20 Mg Tablet, 1 TAB PO QDAY PRN for Erectile Dysfunction, #10 TAB 5 Refills Prov:SHANNA RAMESH MD 11/10/15 Reported Medications Hydrocodone Bit/Acetaminophen (NORCO 10-325 TABLET) 1 Each Tablet, 1 EACH PO Q6H PRN for PAIN TAKE 1 TAB BY MOUTH EVERY 6 HRS NEEDED FOR MODERATE PAIN FOR UP TO 7 DAYS. DO NOT EXCEED A MAXIMUM OF 4 TABLETS A DAY 06/20/18 Ibuprofen (IBUPROFEN) 800 Mg Tablet, 1 TAB PO TID PRN for PAIN, #50 TAB 06/26/17 Discontinued Reported Medications Cephalexin 500 Mg Tab (KEFLEX 500 MG TAB) 500 Mg Tablet, 500 MG PO QID, #60 TAB 06/26/17 Ciprofloxacin 500 Mg Tab (CIPROFLOXACIN 500 MG TAB) 500 Mg Tablet, 500 MG PO BID, #30 TAB 06/12/17 Diet: Regular Activity: As Tolerated Special Instructions: Take Clindamycin as directed until gone. Follow up with Primary Care Provider in one week. Copies to: SHANNA RAMESH MD ; Venous Thromboembolism Antithrombotics Is Pt On Any Antithrombotics?: No LAKESHIA ARREOLA Jun 22, 2018 10:00
== END 2018-06-22 10:35 | disposition home or self-care (01) | DRG 603 ==
LOC: ER 15:48 → MED 21:30
PROVIDERS: ADMIT Family Medicine; ATTEND Family Medicine
DX: L03.115 Cellulitis of right lower limb (principal); I10 Essential (primary) hypertension; Z96.653 Presence of artificial knee joint, bilateral; Z87.891 Personal history of nicotine dependence; Z86.14 Personal history of Methicillin resistant Staphylococcus aureus infection; K73.9 Chronic hepatitis, unspecified
CPT/HCPCS: 36415; 80202; 81001; 82040; 82247; 82310; 82374; 82435; 82565; 82947; 83605; 84075; 84132; 84155; 84295; 84450; 84460; 84520; 85025; 87040; 96361; 96365; 96366; 99285; J1650; J2543; J3370; J3490; J7030; J7040; J7050

== ENCOUNTER → 2018-07-16 | Outpatient (CLI) | payer MEDICARE ==
[2018-06-20 10:25] VITALS: BMI 41.8
[~2018-07-16] MED LIST changes: +CLIN-60 PO; +HYDR-627 PO
[2018-07-16 11:34] LABS: PLATELET COUNT, AUTOMATED 127 K/uL (150-450)
[2018-07-16 11:47] LABS: LDL CHOLESTEROL 63 mg/dl
== END ==
LOC: LAB 11:10
PROVIDERS: ATTEND Internal Medicine
DX: L03.115 Cellulitis of right lower limb (principal); D64.9 Anemia, unspecified; I10 Essential (primary) hypertension; Z86.19 Personal history of other infectious and parasitic diseases
CPT/HCPCS: 36415; 82607; 82728; 82746; 83540; 83550; 84443; 85025; G0103; 82040; 82247; 82310; 82374; 82435; 82465; 82565; 82947; 83718; 84075; 84132; 84153; 84155; 84295; 84450; 84460; 84478; 84520

== ENCOUNTER → 2018-07-27 | Outpatient (CLI) | payer MEDICARE ==
[2018-06-20 10:25] VITALS: BMI 41.8
--- NOTE | 2018-07-27 10:26 | RADIOLOGY IMAGING REPORT ---
FACILITY: [facility] - [place] PATIENT NAME: Reji Burgos : 1955 MR: [id number] V: [id number] EXAM DATE: ORDERING PHYSICIAN: SHANNA RAMESH TECHNOLOGIST: Location: [facility] Patient: Reji Burgos : 1955 Visit/Account:[id number] Date of Sevice: 07/27/2018 ABDOMEN COMPLETE ADDITIONAL HISTORY: History of hepatitis C and gallstones. COMPARISON: None. FINDINGS: Gallbladder: No wall thickening. No pericholecystic fluid collections. There was a partially visual ized curvilinear echogenic density measuring over 1.6 cm compatible with a gallstone. Liver: 15.8 cm. No focal liver lesions. Common duct: Normal, 4.0 mm diameter. Pancreas: Superior due to bowel gas Spleen: 14 cm. No splenic lesions Right kidney: 9.9 x 6.1 x 5.1 cm. Simple appearing 1.2 x 0.7 x 1.3 cm cyst from the inferior aspect of the right kidney. Left Kidney: 10.9 x 6.8 x 5.1 cm. Simple appearing cyst in the upper pole of the left kidney measuri ng 1.3 x 1.1 x 1.1 cm. Upper abdominal aorta and IVC: Patent. Ascites: None visualized. IMPRESSION: 1. No acute intra-abdominal abdominal pathology. Cholelithiasis without evidence of cholecystitis 2. Simple appearing cyst in both kidneys. 3. Mild splenomegaly. Report Dictated By: Jelani Lin MD at 07/27/2018 9:55 AM Report E-Signed By: Jelani Lin MD at 07/27/2018 10:21 AM WSN:[email or web address]
== END ==
LOC: US 01:40
PROVIDERS: ATTEND Internal Medicine
DX: K80.20 Calculus of gallbladder without cholecystitis without obstruction (principal); N28.1 Cyst of kidney, acquired; R16.1 Splenomegaly, not elsewhere classified
CPT/HCPCS: 76700